=== PATIENT | female | born 1980 | race Caucasian/White ===

== ENCOUNTER 2016-12-24 13:12 | Emergency (ER) | payer SELFPAY ==
[~2016-12-24] VITALS: Ht 160 cm; Wt 54.4 kg
[2016-12-24 13:14] VITALS: BP 140/104
--- NOTE | 2016-12-24 13:25 | NUR ---
PATIENT PRESENT TO ER C/O THROAT DISCOMFORT, STATING "IT FEELS LIKE SOMETHING IS STUCK IN MY THROAT." PATIENT IS A/OX 4, BREATHING EVEN AND UNLABORED ON ROOM AIR. NO SOB. VITALS STABLE. SAFETY AND COMFORT MEASURES IN PLACE. AWAITING MD ORDERS.
[2016-12-24] MEDS ORDERED: LIDOCAINE VISCOUS 2% UD 15 ML UDC ONE (13:54)
[2016-12-24] MEDS ORDERED: LIDOCAINE VISCOUS 2% UD 15 ML UDC MM ONE (14:00)
--- NOTE | 2016-12-24 14:10 | NUR ---
patient taken to xray via wheelchair.
--- NOTE | 2016-12-24 14:21 | NUR ---
patient returned from xray
--- NOTE | 2016-12-24 15:39 | NUR ---
Patient discharged to home in stable condition. Written and verbal after care instructions given. Patient verbalizes understanding of instruction.
== END 2016-12-24 15:39 | disposition home or self-care (01) ==
LOC: ER 13:16
DX: R22.9 Localized swelling, mass and lump, unspecified (principal); F41.9 Anxiety disorder, unspecified; Z88.8 Allergy status to other drugs, medicaments and biological substances
CPT/HCPCS: 71020; 99284; A4606; Z7610